=== PATIENT | male | born 1950 ===

== ENCOUNTER 2017-06-09 08:14 | Outpatient (CLI) | payer MEDICARE ==
--- NOTE | 2017-06-09 10:10 | Cat Scan Report ---
CT HEAD WITHOUT CONTRAST: 06/09/17 08:14:00 CLINICAL: Headache and history of prostate cancer. TECHNIQUE: 2.5-mm noncontrast scans. COMPARISON:None FINDINGS: The ventricles are normal size. Mild enlargement of frontal lobe sulci.No suspicious hypodensity. Bilateral benign basal ganglia calcifications. No mass or mass effect. No hemorrhage, edema or extra-axial collection. The sinuses are clear. Normal orbits and soft tissues. The calvarium and skull base are intact. No bone lesions. IMPRESSION: Negative study. No evidence of metastasis.
== END 2017-06-09 08:15 | disposition home or self-care (01) ==
LOC: SPVIMAG 08:14
PROVIDERS: ATTEND Internal Medicine
DX: G23.8 Other specified degenerative diseases of basal ganglia (principal); R51 Headache
CPT/HCPCS: 70450